=== PATIENT | female | born 1980 | race Caucasian/White ===

== ENCOUNTER 2022-02-03 11:52 | Emergency (ER) | payer MEDICARE ==
[~2022-02-03 11:52] MED LIST: GABAPENTIN300 MG PO; IBUPROFEN600 MG PO; KEPPRA1000 MG PO; KLONOPIN1 MG PO; NAPROSYN500 MG PO; NORCO 7.5-3251 EACH PO
[2022-02-03 12:36] LABS: HEMOGLOBIN 14.3 gm/dl (12.3-15.3); RED BLOOD COUNT 4.44 M/UL (4.00-5.10); WHITE BLOOD COUNT 6.5 K/UL (4.5-11.0)
[2022-02-03 13:24] LABS: BUN/CREATININE RATIO 25 (0-10)
[2022-02-03] MEDS ORDERED: PROVENTIL HFA6.7 GM INH (15:18)
[2022-02-03] MEDS ORDERED: MELOXICAM15 MG PO (15:18)
[2022-02-03] MEDS ORDERED: CEFUROXIME500 MG PO (15:18)
== END 2022-02-03 16:25 | disposition home or self-care (01) ==
LOC: ER1 11:52
PROVIDERS: Emergency Medicine
DX: J40 Bronchitis, not specified as acute or chronic (principal); R07.2 Precordial pain; N39.0 Urinary tract infection, site not specified; Z20.822 Contact with and (suspected) exposure to COVID-19; F17.210 Nicotine dependence, cigarettes, uncomplicated; E78.5 Hyperlipidemia, unspecified
CPT/HCPCS: 71045; 80053; 81001; 82550; 82553; 84484; 84703; 85025; 85379; 87077; 87086; 87186; 93005; 96374; 99285; U0002